=== PATIENT | female | born 1945 | race Caucasian/White ===

== ENCOUNTER 2016-11-01 07:30 | Inpatient (IN) | payer MEDICARE ==
--- NOTE | 2016-10-24 22:42 | HP ---
PREOPERATIVE HISTORY AND PHYSICAL: DATE OF OFFICE VISIT: 10/23/16 DATE OF SURGERY: 11/01/16 ATTENDING SURGEON: Chaparrita Lara MD PROCEDURE: Left total shoulder reverse. CHIEF COMPLAINT: Left shoulder pain. HISTORY OF PRESENT ILLNESS: Stacy is a 71-year-old female who presents to the clinic for ongoing left shoulder pain for several years due to severe osteoarthritis and rotator cuff arthropathy. She has failed conservative measures and therefore agreed to undergo a left total shoulder reverse by Dr. Lara on 11/01/16. PAST MEDICAL HISTORY: Hypertension, GERD, and rheumatoid arthritis. PAST SURGICAL HISTORY: Bilateral total knee replacements, radial head resection , C- section, and Doreen-en-Y gastric bypass. She denies complications with anesthesia. MEDICATIONS: 1. Simponi. 2. Lotrel. 3. Omeprazole. ALLERGIES: MORPHINE. FAMILY HISTORY: Cancer, diabetes, and heart disease. SOCIAL HISTORY: She lives with her spouse. She is a former smoker. She quit 42 years ago. She reports occasional alcohol consumption. She denies illegal drug use. REVIEW OF SYSTEMS: General: Negative for fever, chills, or night sweats. No known anesthesia problems. Negative for headache, lightheadedness, or syncopal episodes. Integumentary: Negative for abrasions, lesions, or open wounds. Cardiothoracic: Negative for chest pain, palpitations, or edema. Positive for hypertension. Pulmonary: Negative for shortness of breath with exertion, chronic cough, or COPD. GI: Positive for intermittent GERD. Denies nausea, vomiting, diarrhea, or constipation. : Negative for nocturia, urinary frequency, urinary urgency, history of UTIs, or kidney problems. Musculoskeletal: Positive for left shoulder pain. Neuro: Negative for numbness, tingling, history of seizure, stroke, or epilepsy. Endocrine: Negative for diabetes or thyroid disease. Heme: Negative for easy bruising, anemia, excessive bleeding, or history of DVT. Infectious Disease: Negative for history of MRSA. PHYSICAL EXAMINATION GENERAL: Well-developed, well-nourished, 71-year-old female, in no acute distress. VITAL SIGNS: Height 67, weight 192, blood pressure 134/75, respiratory rate 16 , temperature 97, and BMI 30.1. HEENT: Normocephalic, atraumatic. PERRLA. NECK: Supple. Throat clear. PULMONARY: Lungs are clear to auscultation bilaterally. No wheezing, rhonchi, or rales. CARDIO: Regular rate and rhythm. S1, S2. No murmurs, gallops, or rubs. No edema. ABDOMEN: Positive bowel sounds, soft, and nontender. MUSCULOSKELETAL: Left upper extremity, skin is intact with no warmth or erythema. Tenderness above the joint line. Forward flexion 140, abduction is 90 , external rotation is 50, and internal rotation to the lateral hip. Pain and weakness to rotator cuff testing; +2 radial pulse, +2 ulnar pulse. Sensation is intact to light touch distally. NEUROLOGIC: Alert and oriented x3. Cranial nerves grossly intact. Sensation intact to light touch. DIAGNOSTIC STUDIES/LAB DATA: Multiview x-rays of the left shoulder obtained in March reveal advanced glenohumeral arthritis. IMPRESSION: Left shoulder severe osteoarthritis and rotator cuff arthropathy. PLAN/RECOMMENDATIONS: The patient is scheduled to undergo a left total shoulder reverse with Dr. Lara on 11/01/16. She is holding her Simponi preoperatively and postoperatively per rheumatology. She has been cleared by rheumatology and will see her primary care physician soon for preoperative clearance. She will follow up in 10 to 14 days postoperative for followup, suture removal, and x-rays. A prescription for Percocet was e-prescribed to her pharmacy for postop pain management and Keflex was sent for antibiotic prophylaxis. DAPHNEY HEATH [id number]/[facility] #: [id number] NUBIA
[~2016-11-01 07:30] MED LIST: Dexamethasone IV* 4 MG/ML 1 ML (4 MG) IV SLOW PU ONE; Famotidine IV* 10 MG/ML 2 ML (20 mg) IV ONE
[2016-11-08] MEDS ORDERED: Famotidine IV* 10 MG/ML 2 ML (20 mg) IV ONE (06:00)
[2016-11-08] MEDS ORDERED: Gabapentin CAP(*) 300 MG PO ONE (06:00)
[2016-11-08] MEDS ORDERED: Buffered Lidocaine 0.9% SYRIN* 5 ML/SYR SYRINGE ONE (06:06)
[2016-11-08] MEDS ORDERED: Gabapentin CAP(*) 300 MG ONE (06:06)
[2016-11-08] MEDS ORDERED: ceFAZolin 2 GM PREMIX(*) 2 GM/50 ML BAG IVPB ONE (06:06)
[2016-11-08] MEDS ORDERED: Famotidine IV* 10 MG/ML 2 ML (20 mg) ONE (06:06)
[2016-11-08] MEDS ORDERED: Scopolamine 1.5 mg* PATCH ONE (07:21)
[2016-11-08] MEDS ORDERED: Midazolam* 1 MG/ML 5 ML VIAL (5 MG) ONE (07:25)
[2016-11-08] MEDS ORDERED: Lidocaine 1% MPF* 2 ML VIAL ONE (07:34)
[2016-11-08] MEDS ORDERED: fentaNYL* 50 MCG/ML 2 ML VIAL (100 MCG VIAL) ONE (07:44)
[2016-11-08] MEDS ORDERED: KETAMINE HCL* 50 MG/ML 10 ML VIAL ONE (08:09)
[2016-11-08] MEDS ORDERED: Midazolam* 1 MG/ML 2 ML VIAL (2 MG) ONE (08:20)
[2016-11-08] MEDS ORDERED: Propofol* 10 MG/ML 20 ML BTL IV PUSH ONE (08:25)
[2016-11-08] MEDS ORDERED: Succinylcholine* 20 MG/ML 10 ML VIAL ONE (08:25)
[2016-11-08] MEDS ORDERED: Ketorolac INJ* 30 MG/ML 1 ML VIAL ONE (08:25)
[2016-11-08] MEDS ORDERED: DiMENhydriNATE IV* 50 MG/ML VIAL ONE (08:25)
[2016-11-08] MEDS ORDERED: Dexamethasone IV* 4 MG/ML 1 ML (4 MG) ONE (08:25)
[2016-11-08] MEDS ORDERED: Ondansetron INJ* 2 MG/ML VIAL ONE (08:25)
[2016-11-08] MEDS ORDERED: fentaNYL* 50 MCG/ML 2 ML VIAL (100 MCG VIAL) IV PRN (08:30)
[2016-11-08] MEDS ORDERED: Acetaminophen TAB* 325 MG PO PRN (08:30)
[2016-11-08] MEDS ORDERED: DiMENhydriNATE IV* 50 MG/ML VIAL IV PUSH PRN (08:30)
[2016-11-08] MEDS ORDERED: Gabapentin CAP(*) 100 MG PO ONE ×2 (08:32)
[2016-11-08] MEDS ORDERED: ROPIVACAINE 5 MG/ML 30 ML BTL (0.5%) ONE (09:40)
[2016-11-08] MEDS ORDERED: Ondansetron INJ* 2 MG/ML VIAL IV PRN (10:40)
[2016-11-08] MEDS ORDERED: diPHENhydraMINE IV* 50 MG/ML 1 ml VIAL (BENADRYL) IV PRN (10:40)
[2016-11-08] MEDS ORDERED: oxyCODONE/Acetamin 5/325 MG* TAB PO PRN (10:40)
[2016-11-08] MEDS ORDERED: Temazepam CAP* 15 MG PO PRN (10:40)
[2016-11-08] MEDS ORDERED: Enoxaparin(*) 30 MG/0.3 ML SYR SUBCUT SCH (11:00)
--- NOTE | 2016-11-08 12:25 | RAD ---
HISTORY: Postop arthroplasty COMPARISONS: March 07, 2016 VIEWS: 4, frontal and crosstable lateral views of the left shoulder FINDINGS: BONE DENSITY: Normal. BONES: The patient is status post left shoulder arthroplasty. There is no hardware failure or osteolysis. JOINTS: The patient is status post left shoulder arthroplasty ALIGNMENT: There is no dislocation. SOFT TISSUES: There is post surgical change to the soft tissues OTHER FINDINGS: None. IMPRESSION: STATUS POST LEFT SHOULDER ARTHROPLASTY
[2016-11-08] MEDS: ceFAZolin VIAL(*) 1 GM in NS 0.9% 50 ML* 50 ML IVPB SCH ×2 (15:28→23:19)
[2016-11-08] MEDS: oxyCODONE TAB* 5 MG TAB PO PRN ×2 (16:54→21:10)
[2016-11-08] MEDS ORDERED: Gabapentin CAP(*) 300 MG PO SCH (21:00)
[2016-11-08] MEDS: Docusate CAP* 100 MG PO SCH (21:10)
[2016-11-09] MEDS: oxyCODONE/Acetamin 5/325 MG* TAB PO PRN ×4 (01:26→14:27)
[2016-11-09 07:17] LABS: Hematocrit 34 % (35-47); Hemoglobin 11.3 g/dl (12.0-16.0)
--- NOTE | 2016-11-09 07:26 | PN ---
Progress Note - Progress Note Note: POD#1 from L reverse. Doing well. block wore off. c/o soreness. no numbness/ tingling. taking pain meds q3hrs. Temp Pulse Resp BP Pulse Ox 97.9 F 74 18 106/57 97 11/09/16 03:33 11/09/16 03:33 11/09/16 04:25 11/09/16 03:33 11/09/16 03:33 NAD. LUE. dressing in place. able to flex/ext elbow. SILT 1st dws, index and long finger, and ulnar aspect of small finger. 2+ radial pulse. minimal hand swelling Laboratory Results - last 24 hr 11/08/11/09/16 06:38 06:17 Hgb 11.3 L Hct 34 L Antibody Screen Negative Intake and Output Last 24 Hours 11/07/16 11/08/16 11/09/16 11/10/16 06:59 06:59 06:59 06:59 Intake Total 5095 Output Total 500 Balance 4595 Weight 196 lb Intake: IV Fluids 2550 LR 2550 IVPB 55 Oral 1990 Moise Irrigate Amount 500 Output: Urine 500 Other: # Bowel Movements 0 A/P s/p L reverse POD#1 doing well. continue analgesia PT/OT- NWB. passive ROM only FF 90, abd 90, ER 40 No PE combined with IR cont iv abx drain output to be recorded and likely d/c'd later today. will potentially d/c today or tomorrow
[2016-11-09 07:36] LABS: BUN/Creatinine Ratio 19.4 (8-20); Calcium 8.3 mg/dL (8.6-10.3); EGFR African American 122.7 (>60); EGFR Non-African American 95.4 (>60); Potassium 3.9 mmol/L (3.5-5.0)
[2016-11-09] MEDS: Docusate CAP* 100 MG PO SCH (08:20)
[2016-11-09] MEDS: ceFAZolin VIAL(*) 1 GM in NS 0.9% 50 ML* 50 ML IVPB SCH (08:26)
[2016-11-09] MEDS: Ketorolac INJ* 30 MG/ML 1 ML VIAL IV PUSH PRN ×2 (08:32→14:27)
[2016-11-09] MEDS ORDERED: Atorvastatin* 20 MG TAB PO SCH (09:00)
[2016-11-09] MEDS ORDERED: amLODIPine TAB* 5 MG PO SCH (09:00)
[2016-11-09] MEDS ORDERED: oxyCODONE TAB* 5 MG TAB PO PRN (10:34)
[2016-11-09] MEDS ORDERED: Enoxaparin(*) 30 MG/0.3 ML SYR SUBCUT SCH (11:00)
[2016-11-09] MEDS: oxyCODONE TAB* 5 MG TAB PO PRN (11:32)
--- NOTE | 2016-11-09 11:56 | OP ---
CC: Primary Care Physician, Camilo Escalona DO* DATE OF OPERATION: 11/08/16 - ROOM #349 DATE OF : 49 SURGEON: Dr. Chaparrita Lara MD ASSISTANTS: DAPHNEY Mcgrath and DAPHNEY Conte. Assistants were needed for the entirety of the case to help with positioning, retraction and were utilized throughout all portions of the case. ANESTHESIOLOGIST: Dr. Vinson. ANESTHESIA: General with an interscalene block. PRE-OP DIAGNOSIS: Left shoulder rotator cuff arthropathy. POST-OP DIAGNOSIS: Left shoulder rotator cuff arthropathy. OPERATIVE PROCEDURE: Left shoulder reverse arthroplasty with open biceps tenodesis. IMPLANTS USED: Aequalis reversed centered glenosphere with a 25 mm baseplate, a 25 x 25 mm threaded baseplate, a left shoulder reverse insert with 9 mm of thickness, Ascend Flex size 4B humeral stem in a center reversed tray. OUTPUT: Includes drain x1. COMPLICATIONS: None. ESTIMATED BLOOD LOSS: About 200 cc. INDICATIONS: Stacy Rausch is a 71-year-old female with a history of rheumatoid arthritis with severe left shoulder arthritis with rotator cuff arthropathy. She failed conservative management and she has had worsening of pain. After an extensive discussion of the risks and benefits of surgical versus nonoperative treatment, she has elected to proceed with left shoulder reverse arthroplasty. Risks include but are not limited to bleeding, infection, damage to nerves, vessels and surrounding structures, the wound not healing, persistent pain, need for further surgery, risks of anesthesia, scarring, incomplete relief of symptoms, dislocation of fracture, and risks of DVT. She elects to proceed. After obtaining appropriate medical and cardiac clearance, she has been optimized for surgery. DESCRIPTION OF PROCEDURE: The patient was greeted in the preoperative area by the attending surgeon. Correct extremity was marked and consent was confirmed. The patient then underwent an interscalene nerve block which she tolerated without difficulty, after which the patient was brought back to the operating suite. She was placed in the supine position on the operating room table. She then underwent general anesthesia with endotracheal intubation, after which the patient was positioned in the lazy beach-chair position. All bony prominences were padded with a pillow placed under her knees as well as on her head. Her head was placed on a donut and secured carefully with Kerlix and Tamiko. The left shoulder was then prepped and draped in the usual sterile fashion beginning with chlorhexidine soap, scrub and alcohol wipe, and a final prep with ChloraPrep. After appropriate surgical pause indicating site, side, and procedure, and administration of antibiotic, the deltopectoral incision was made carefully with the 15 blade. The soft tissues were carefully dissected using the Metzenbaum scissors. Electrocautery device was used to maintain hemostasis. The cephalic vein was then identified and deltopectoral groove was identified. The vein was then taken laterally with the deltoid. A Hohmann retractor was placed above the coracoid for visualization. There was abundant bursa that was present anteriorly as well as the clavipectoral fascia, which was carefully incised and the short head of the biceps was identified as well as the coracoid. The nerve was then identified and then released. The clavipectoral and the subscapular bursa was identified and removed. The pec tendon was identified where it inserted. The proximal 1 cm was released and then the biceps was tenodesed at this point using a heavy nonabsorbable suture. This was then tenotomized proximal to that. The dissection was carried proximally following the trajectory of the biceps, which allowed access to the joint. The bursa and soft tissues and adhesions were then carefully released with the curved Da Silva scissors. At this point, the subscap was then carefully elevated in subscap ____type fashion. Stay sutures were used to control traction on the tendon. At this point, the head was visualized and there was a full-thickness, 2 to 3 cm retracted tear of the supraspinatus tendon. The infraspinatus remained intact. There was a large amount of osteophytes anteriorly and inferiorly, and a loose body that was present that was removed. That was at least 1 cm x 0.75 cm. The shoulder was then gently dislocated. All the capsule was removed inferiorly. The osteophyte was identified and then carefully removed using an osteotome and rongeur to allow identification of the humeral anatomical neck. Once the head was fully exposed, the subscap was tucked back into the subscap fossa, retractors were placed around the head to protect the soft tissue and the sagittal saw was then used to make a free-hand cut of the humeral head. At this point, the bone quality was found to be quite poor and the remainder of the humeral portion was done very carefully because of the poor quality of bone. The canal finder was first used and then the sounding device was then found to be between size 4 and 5. The starting broach was then placed with care to try to appropriately retrovert the arm in about 20 degrees of retroversion. These were then passed until a good fit was found, which was found to be a size 4. Once this was done, this was then coplaned and then a protection baseplate was placed on this. At this point, the shoulder was then carefully reduced back into the wound and placed posteriorly, and at this point, attention to the glenoid was done. The posterior retractor was placed behind the glenoid. The superior retractor was placed above the superior labrum. The subscap was identified and the superior, middle and inferior glenohumeral ligaments were then released carefully using a curved Da Silva as well as an electrocautery device. This then allowed for more mobilization of the subscap. There was a large anterior osteophyte about the glenoid. The ligament was then carefully removed from the 12 o'clock to the 5 o 'clock position using a regular Bovie. Once the soft tissues were identified and elevated, the biceps was sent for culture to check for P. acnes identification. The remainder of the inferior labrum was then carefully released using a needle-tip Bovie with careful retraction sutures to allow for release of the triceps as well as the inferior labrum. This was pealed back to expose the inferior portion of the glenoid. The glenoid was examined and there was found to be more wear posteriorly. She had a B1 to B2 type glenoid in between that without significant amounts of bone mass, but early bone loss. The threaded guide was then placed inferiorly in the glenoid using the guide with at least 11 mm from the inferior portion of the glenoid. The reamer was then brought in and more anterior bone was reamed than posterior bone. At this point, a decision was made to plan for bone graft to be placed posteriorly. The 8 mm drill was then used to drill the center peg and then a 6.5 mm drill bit was drilled and found to be a depth of about 25 mm. This was also measured using the depth gauge. Then the appropriate baseplate was chosen. This was tapped and then bone graft was placed more posteriorly along the defect after all hand reaming was finished. The bone graft was densely impacted into place. The final implant was brought to the field and then screwed into position with excellent purchase. At this point, 4 locking screws were then placed in appropriate length into the glenoid, beginning superiorly and inferiorly and then anteroposteriorly. The glenosphere was then brought into the field, packed in good position, and screwed with a sub screw. At this point, attention was directed back to the humerus. The shoulder was brought back through the wound. The threaded protection plate was removed and the stem was checked to see if it has moved. It had loosened somewhat; therefore, it was impacted back gently into position and required to be coplaned again. This was found to have a good fit. Again, the bone quality was quite poor, so impaction was done gently. At this point, the centered trial components were then placed. A standard poly was used and was found to be slightly too loose with good pinch in the deltoid, was easily dislocated. Therefore, a decision was made to trial with a 9 mm poly. This allowed for an excellent fit with appropriate shuck, forward flexion to about 140, abduction to 100 degrees, external rotation to about 70 degrees. This was then dislocated and found to somewhat difficult to dislocate; therefore, it was a better fit than the original poly and it was chosen. The final implants were then chosen and prepared on the back table by the attending surgeon. The trial implants were removed, 3 drill hole guides were then made with #5 Ethibond sutures for the subscap closure. The final implant was then impacted into the humerus with excellent purchase. The shoulder was then carefully reduced and taken through a range of motion, which was found to be the same. At this point, the wound was copiously irrigated with sterile saline. The #5 Ethibond sutures were then passed through the subscap inferior to superior to allow for good subscap closure. At this point, the wound was copiously irrigated again. A drain was then placed in the wound. After the wound was again irrigated, the deltopectoral groove was closed with #2 Ti-Cron sutures in case there is a need for any revision surgery. The deltopectoral groove was identified. The wound was irrigated again. The subcutaneous tissues and the skin were closed 2 layers with 2-0 Vicryl and 3-0 Monocryl. Sterile dressings were applied as well as the Cryo/Cuff and UltraSling. She was awoken from anesthesia and transferred to the PACU in stable condition. POSTOPERATIVE PLAN: She will be admitted overnight in the hospital. She will be given 24 hours of postoperative antibiotics as well as pain medication. The drain will be kept until postop day 1, which will likely be discontinued. She will be in the sling for 6 weeks. She will be allowed to work on passive range of motion only, forward flexion to 90, abduction to 90, external rotation to about 50 degrees as tolerated. I will see the patient back 10 to 14 days after she is discharged. [id number]/[facility] #: [id number] NUBIA
[2016-11-09 12:01] VITALS: BP 111/46
--- NOTE | 2016-11-09 23:11 | DS ---
DISCHARGE SUMMARY: DATE OF ADMISSION: 11/08/16 DATE OF DISCHARGE: 11/09/16 CHIEF COMPLAINT: 1. Shoulder pain. 2. Hypertension. 3. Gastroesophageal reflux disease. 4. Rheumatoid arthritis. DISCHARGE DIAGNOSES: 1. Status post left total shoulder reverse. 2. Hypertension. 3. Gastroesophageal reflux disease. 4. Rheumatoid arthritis. PROCEDURE: Left total shoulder arthroplasty. CONSULTATIONS: 1. Physical Therapy. 2. Occupational Therapy. BRIEF HISTORY: Ms. Rausch is a very pleasant 71-year-old female with severe end- stage degenerative osteoarthritis of the left shoulder, who has failed conservative treatment and has elected to underg o a left total shoulder arthroplasty on 11/08/[address] Lara. HOSPITAL COURSE: Ms. Rausch was admitted to [facility] on 11/08/16, where she underwent a left total shoulder arthroplasty. Postoperatively, she recovered in the surgical short stay unit. Her pain was controlled with Percocet and oxycodone orally. She was restarted on her home medicati ons without difficulty. Her labs and vital signs remained stable. Her DVT prophylaxis was managed with Lovenox inhouse. She was ambulatory without difficulty and worked well with physical therapy. By postoperative day #1, she was orthopedically and medically stable for discharge to go home with home services. PHYSICAL EXAMINATION: General: Well appearing, in no acute distress, alert and oriented x3. Vital Signs: Temperature 97.9, pulse rate 51, respirations 14, oxygen 99% on room air, blood pressure 12 9/46. Extremities: Examination showed the surgical dressing was intact. The patient was able to f rolo and extend the elbow without difficulty. Full range of motion of digits on left hand, +2 radial pulse left side, minimal hand swelling. LABORATORY DATA: On the date of discharge shows hemoglobin and hematocrit of 11.3 and 34. DISCHARGE MEDICATIONS: 1. Atorvastatin 20 mg p.o. daily. 2. Colace 100 mg p.o. b.i.d. 3. Gabapentin 300 mg p.o. q.p.m. 4. Amlodipine/atorvastatin 5/20 mg p.o. q.a.m. 5. Oxycodone 5 mg 1 to 2 tablets every 3 hours p.r.n. alternating with Percocet. 6. Percocet 5/325 mg 1 to 2 tablets every 3 hours as needed p.r.n. alternating with oxycodone. 7. Vitamin D 1000 units supplementation daily. 8. Simponi 1 unit injection monthly per physician. CONDITION ON DISCHARGE: Stable. DISCHARGE INSTRUCTIONS: Ms. Rausch is a very pleasant 71-year-old female status post left shoulder a rthroplasty, postoperative day [address] Lara. She is orthopedically and medically stable for disc harge to go home with home services. Her labs and vital signs are stable. She will restart her home medications. She will alternate between Percocet and oxycodone for postoperative pain control so a s not to take too much Tylenol. The patient was educated on this. She will follow up with Dr. Osvaldo howard in approximately 10 days for incision check and suture removal. She is instructed to go to the ER should she develop chest pain or shortness of breath. Should she develop fever, increasing pain, o r redness, she is to call the office immediately. DAPHNEY BENNETT [id number]/[facility] #: [id number]
== END 2016-11-09 14:45 | disposition home or self-care (01) | DRG 483 ==
LOC: AA 11-08 06:04 → INTOOBSV 11-08 06:04 → OBSVTOIN 11-08 06:04 → SSU 11-08 14:20
PROVIDERS: ADMIT Orthopaedic Surgery; ATTEND Orthopaedic Surgery
PROC: 0LB Tendons, Excision (ICD-10-PCS; 2016-11-08)
PROC: 0RRK00Z Replacement of Left Shoulder Joint with Reverse Ball and Socket Synthetic Substitute, Open Approach (ICD-10-PCS; principal; 2016-11-08 07:30)
DX: M19.012 Primary osteoarthritis, left shoulder (principal); I10 Essential (primary) hypertension; K21.9 Gastro-esophageal reflux disease without esophagitis; M06.9 Rheumatoid arthritis, unspecified; M25.512 Pain in left shoulder; M25.712 Osteophyte, left shoulder; Z87.891 Personal history of nicotine dependence; Z88.5 Allergy status to narcotic agent; Z79.899 Other long term (current) drug therapy; Z96.653 Presence of artificial knee joint, bilateral; Z98.84 Bariatric surgery status; Z83.3 Family history of diabetes mellitus; Z82.49 Family history of ischemic heart disease and other diseases of the circulatory system; Z80.9 Family history of malignant neoplasm, unspecified
CPT/HCPCS: 36415; 80048; 85014; 85018; 86850; 86900; 86901; 87070; 87205; 87640; 87641; 88304; 88311; 94760; 96374; A9270-GY; C1713; C1776; G0378; G8978-GP-CI; G8979-GP-CI; G8980-GP-CI; G8987-GO-CI; G8988-GO-CH; J0330; J0690; J1100; J1240; J1650; J1885; J2250; J2405; J2704; J2795; J3010

== ENCOUNTER 2018-03-14 05:53 | Inpatient (IN) | payer MEDICARE ==
--- NOTE | 2018-03-12 12:33 | HP ---
HISTORY AND PHYSICAL: DATE OF ADMISSION: 03/14/18 She is coming in to [facility] 03/14/18 in the morning for a left total hip replacement. CHIEF COMPLAINT: Left hip region pain. HISTORY OF PRESENT ILLNESS: This 73-year-old woman who is retired and has rheumatoid arthritis, began to having left hip region pains last winter while in [place] and all of her activities were severely restricted. This spring when she came back, she saw Dr. Celestin, it was felt she might have a radiculopathy. She had an MRI scan of the lumbar spine, saw a neurologist in [place], then she saw Dr. Auguste and Dr. Barrientos in [place] and over the summer, she had a left hip injection, which relived her pain for 3 to 4 weeks. The only other thing that relieved her pain this summer was a tapering dose of steroids from Dr. Celestin that she got earlier in the summer. Her walking distances has been less than a block. She has been doing stairs one at a time with the railing. She can sleep now only with oxycodone and the left hip region pain persists at the anterolateral left hip going down the thigh and some into her leg. She recently had EMGs that did not show a left lumbar radiculopathy, but did have some findings of neuropathy. Because severe pain has persisted and the only thing that has helped so far was the injection of the hip. We have recommended a left total hip replacement and we reviewed the risks and complications of that with her and her questions were answered. PAST SURGICAL HISTORY: She has had rheumatoid arthritis for many years with involvements of her elbows. She has had a left total shoulder replacement. She has had bilateral total knee replacements. For the past surgery, she had been cleared from the cardiovascular point of view. Her EKG has abnormality has on it and she has had no recent chest pain or shortness of breath. PAST MEDICAL HISTORY: No past history of bronchitis or pneumonia. MEDICATIONS: Her daily meds include: 1. Gabapentin 300 mg each day. 2. Percocet 1 to 2 tablets each 24 hours currently. 3. [employer], which she is not using. 4. She is on a combination of blood pressure medication that she does not have the name of right now. ALLERGIES: She is allergic to MORPHINE. FAMILY HISTORY: Positive for cancer of breast, diabetes and coronary disease. SOCIAL HISTORY: She does not smoke. She has 5 alcoholic beverages per week. She is currently living in a camper with her . REVIEW OF SYSTEMS: The patient herself has not had any cancers. She does not have kidney or bladder problems. No urinary infection. No bleeding difficulties and not currently under treatment for rheumatoid arthritis. PHYSICAL EXAMINATION GENERAL: She is overweight, not markedly distressed with an antalgic gait on the left. Prominent to the left hip. VITAL SIGNS: Pulse 64, blood pressure 138/72. HEENT: Head: NC/AT. LUNGS: Clear bilaterally. HEART: Regular. S1, S2 normal. No murmurs or gallops. ABDOMEN: Soft, nontender. There is no organomegaly. MUSCULOSKELETAL: The patient lies supine with her left hip and knee flexed and she can hardly put her knee down straight because of left hip region pain. Straight leg raising on the left is not possible. The left ankle has active movements up, down, in and out. The left posterior tibial pulses 2+. No swelling of the left leg ankle and foot. On the right side, she does an easy leg raise. Her knee replacements have well healed surgical scars without redness, fluctuance, or drainage. NEUROLOGIC: The pain currently rated as a 9/10. The cranial nerves are grossly intact. LAB DATA: Hip radiographs show some degenerative changes with osteophyte inferior and medial. IMPRESSION: Severe arthritis of the left hip, it certainly could be rheumatoid arthritis. I have consulted with Dr. Hsieh and we have recommended a left total hip replacement. Her questions were answered. [id number]/[facility] #: [id number] [facility]
[~2018-03-14 05:53] MED LIST changes: +Buffered Lidocaine 0.9% SYRIN* 5 ML/SYR SYRINGE INTRADERM ONE; -Dexamethasone IV* 4 MG/ML 1 ML (4 MG) IV SLOW PU ONE; -Famotidine IV* 10 MG/ML 2 ML (20 mg) IV ONE
[2018-03-14] MEDS ORDERED: Famotidine IV* 10 MG/ML 2 ML (20 mg) IV ONE (06:00)
[2018-03-14] MEDS ORDERED: Famotidine IV* 10 MG/ML 2 ML (20 mg) ONE (06:01)
[2018-03-14] MEDS ORDERED: Buffered Lidocaine 0.9% SYRIN* 5 ML/SYR SYRINGE ONE (06:02)
[2018-03-14] MEDS ORDERED: ceFAZolin 2 GM PREMIX in ORs 2 GM/50 ML BAG IVPB ONE (06:02)
[2018-03-14] MEDS ORDERED: Propofol* 10 MG/ML 20 ML BTL IV PUSH ONE (06:41)
[2018-03-14] MEDS ORDERED: Lidocaine 2% PF * 5 ML VIAL ONE ×2 (06:41→06:43)
[2018-03-14] MEDS ORDERED: fentaNYL* 50 MCG/ML 2 ML VIAL (100 MCG VIAL) ONE ×4 (06:43→10:54)
[2018-03-14] MEDS ORDERED: ROPIVACAINE 5 MG/ML 30 ML BTL (0.5%) ONE (06:43)
[2018-03-14] MEDS ORDERED: Midazolam* 1 MG/ML 2 ML VIAL (2 MG) ONE (06:43)
[2018-03-14] MEDS ORDERED: Rocuronium* 10 MG/ML VIAL ONE ×2 (07:52→08:32)
[2018-03-14] MEDS ORDERED: Ketorolac INJ* 30 MG/ML 1 ML VIAL ONE (08:36)
[2018-03-14] MEDS ORDERED: Metoclopramide IV* 5 MG/ML 2 ML VIAL ONE (08:36)
[2018-03-14] MEDS ORDERED: Ondansetron INJ* 2 MG/ML VIAL ONE (08:36)
[2018-03-14] MEDS ORDERED: Dexamethasone IV* 4 MG/ML 1 ML (4 MG) ONE (08:36)
[2018-03-14] MEDS ORDERED: Naloxone* 0.4 MG/ML 1 ML VIAL IV PRN (09:20)
[2018-03-14] MEDS ORDERED: DiMENhydriNATE IV* 50 MG/ML VIAL IV PUSH PRN (09:20)
[2018-03-14] MEDS ORDERED: Acetaminophen IV 1GM/100ML * 100 ML ONE (09:21)
[2018-03-14] MEDS ORDERED: Bupivacaine 0.25% W/EPI* 10 ML SDV ONE ×2 (09:45→09:49)
[2018-03-14] MEDS ORDERED: Sugammadex * 200 MG/2 ML VIAL IV PUSH ONE (09:45)
[2018-03-14] MEDS: fentaNYL* 50 MCG/ML 2 ML VIAL (100 MCG VIAL) IV PRN ×4 (10:36→12:10)
[2018-03-14] MEDS ORDERED: Magnesium Hydroxide LIQ* 30 ML UDC PO PRN (10:58)
[2018-03-14] MEDS ORDERED: diPHENhydraMINE PO* 25 MG PO PRN (10:58)
[2018-03-14] MEDS ORDERED: traMADol TAB* 50 MG PO PRN (10:58)
[2018-03-14] MEDS ORDERED: Ondansetron TAB* 4 MG PO PRN (10:58)
[2018-03-14] MEDS ORDERED: Ondansetron INJ* 2 MG/ML VIAL IV PRN (10:58)
[2018-03-14] MEDS ORDERED: Cyclobenzaprine TAB* 10 MG PO PRN (10:58)
[2018-03-14] MEDS ORDERED: traZODone TAB* 50 MG TAB PO PRN (10:58)
[2018-03-14] MEDS ORDERED: oxyCODONE TAB* 5 MG TAB ONE (12:46)
--- NOTE | 2018-03-14 12:46 | RAD ---
HISTORY: LEFT TOTAL HIP REPLACEMENT COMPARISONS: February 12, 2018 VIEWS: 4 , Frontal and lateral views of the left hip FINDINGS: BONE DENSITY: Normal. BONES: The patient is status post left hip arthroplasty. There is no hardware failure or osteolysis. JOINTS: The patient is status post left hip arthroplasty. ALIGNMENT: There is no dislocation. SOFT TISSUES: Unremarkable. OTHER FINDINGS: None. IMPRESSION: STATUS POST LEFT HIP ARTHROPLASTY
[2018-03-14] MEDS: ceFAZolin 1 GM in Dextrose (*) 1 GM/50 ML BAG IVPB SCH (15:30)
[2018-03-14] MEDS: Acetaminophen TAB* 325 MG PO SCH (17:50)
[2018-03-14] MEDS: Gabapentin CAP(*) 300 MG PO SCH (17:50)
[2018-03-14] MEDS: oxyCODONE TAB* 5 MG TAB PO PRN ×2 (18:29→23:03)
[2018-03-14] MEDS: Docusate CAP* 100 MG PO SCH (22:43)
[2018-03-14] MEDS: Ferrous Sulfate TAB* 325 MG PO SCH (22:43)
[2018-03-14] MEDS: Magnesium Hydroxide LIQ* 30 ML UDC PO SCH (22:43)
[2018-03-15] MEDS: ceFAZolin 1 GM in Dextrose (*) 1 GM/50 ML BAG IVPB SCH ×2 (00:06→07:57)
[2018-03-15] MEDS: Acetaminophen TAB* 325 MG PO SCH ×3 (00:13→18:13)
[2018-03-15] MEDS: oxyCODONE TAB* 5 MG TAB PO PRN ×6 (03:38→23:31)
--- NOTE | 2018-03-15 05:22 | OP ---
CC: Dr. Escalona * DATE OF OPERATION: 03/14/18 - ROOM #346 DATE OF : [birth year] - AGE: 73 SURGICAL CARE: Left hip. SURGEON: Kalen Auguste MD RATING EXAMINER: Justino. ANESTHESIOLOGIST: Dr. Hernandez. ANESTHESIA: A left hip iliofascial block and endotracheal tube general. PRE-OP DIAGNOSIS: Left hip arthritis, rheumatoid type. POST-OP DIAGNOSIS: Left hip arthritis, rheumatoid type. OPERATIVE PROCEDURE: Left total hip replacement. COMPONENTS UTILIZED: The Blaine Continuum cup 48 mm outer diameter 1 screw and elevated liner for 32, had located posteriorly and on the femoral side a M/L taper reduced neck standard size 9 with a +0 32 mm head neck. COMPLICATIONS: There were no complications. DRAINS: There were no drains BLOOD LOSS: 250 mL. REPLACEMENT: Crystalloid fluids. INDICATION: Persistent pain, left hip. DESCRIPTION OF PROCEDURE: The patient was brought to the operating room and placed on the operating room table in a supine position following the administration of the anesthetic. A Moise catheter was inserted. The patient was placed in the right lateral position with a folded blanket underneath the right greater trochanter. The pelvis was secured over the ASIS and the sacrum using the hip positioners, the groin was sealed off, the down side leg checked to see that there was no pressure on the peroneal nerve at the fibular head and neck and the left hip was given a preliminary chlorhexidine prep and then the final ChloraPrep. After prepping, draping and sealing off we did our universal protocol timeout confirming Stacy Young and a plan for left hip arthroplasty. We all agreed and we proceeded. Left hip was approached with the curving posterior lateral skin incision going from the greater trochanter distally for 2 to 3 inches and curving proximally and posteriorly for approximately 3 inches. Hemostasis was checked and achieved throughout the case utilizing electrocautery. The skin and subcu divided down to the iliotibial fascia. The fascia was opened up over the greater trochanter. A Charnley retractor was inserted. The trochanter was cleaned posteriorly. A blunt Hohmann retractor was inserted under the gluteus medius muscle. The piriformis was identified. The piriformis and conjoint tendon were released from their piriformis fossa insertions, the hip had clear synovial fluid, it did not seem to be too abundant. A careful posterior approach to the hip was done staying subperiosteal and careful hemostasis checked and achieved. The hip was dislocated without difficulty. The femoral neck was marked with the neck cutting guide and the femoral neck was cut approximately a fingerbreadth proximal to the lesser trochanter. The head and neck was removed. There was some thickening and synovitis in the capsule. The retractors Hohmann's anteriorly and posteriorly both sharp and superiorly and inferiorly blunt Hohmann's. The acetabulum had osteophytes. Posterior osteophyte was removed with an osteotome and the medial osteophyte removed with an osteotome. Charnley curette was utilized and the acetabulum was cleaned. Reaming was done 44 through 48. At 48, there was nice bleeding subchondral and cancellous bone. The acetabulum was cleaned with pulse saline, a 48 Continuum cup was impacted into position in 45 degrees of the abduction and 20 degrees of anteversion, a single screw was inserted and elevated liner was placed posteriorly. On the femoral side we used a canal finder, trochanteric reamer broaching was done 4 through 9, and 9 with a standard neck. The reduction was too tight, so a reduced neck M/L taper standard size 9 was impacted into position at approximately 15 to 20 degrees of anteversion. Trial reduction was done with a +0 and this had a very slight push-pull and no tendency towards dislocation and extension with rotations and in flexion of 90 degrees, adduction and internal rotation of 30 to 40 degrees were allowed prior to dislocation. The trunnion was cleaned and a +0 32 mm head was applied. The hip was reduced without difficulty. Closure was done with careful hemostasis several irrigations with lap sponges, swabbing the soft tissues to remove any debris. The piriformis and conjoint tendon were repaired onto the posterior superior greater trochanter through 2 drill holes and the stitches that have been used to robert them in the posterior capsule. The fascia angus closed with interrupted #1 Polysorb in [id number] fashion, the same in the fascia of the gluteus carmen. Deep and superficial subcu closed with 0 and then 2-0 Polysorb and then padmaja on the skin. The surgery was infiltrated with 20 mL of 0.25% Marcaine with epinephrine, some deep to the fascia and some in the skin and subcu. Dressing was applied after washing and drying with Betadine soaked release, sterile gauze, ABD pads and then paper tapes. The patient was returned to the hospital bed into the recovery room in stable and satisfactory condition, having tolerated the procedure very well. In the recovery room x- rays showed that the hip was in satisfactory overall alignment. [id number]/[facility] #: [id number] MTDD
[2018-03-15 06:05] LABS: Hematocrit 28 % (35-47); Hemoglobin 9.8 g/dl (12.0-16.0)
[2018-03-15 06:18] LABS: EGFR Non-African American 89.9 (>60)
[2018-03-15] MEDS ORDERED: oxyCODONE/Acetamin 5/325 MG* TAB PO PRN (06:18)
[2018-03-15] MEDS ORDERED: AMLODIPINE BESYLATE PO SCH (09:00)
[2018-03-15] MEDS ORDERED: BENAZEPRIL PO SCH (09:00)
[2018-03-15] MEDS: Aspirin TAB* 325 MG PO SCH (09:18)
[2018-03-15] MEDS: Vitamin B Complex TAB PO SCH (09:18)
[2018-03-15] MEDS: Ferrous Sulfate TAB* 325 MG PO SCH ×2 (09:18→23:31)
[2018-03-15] MEDS: Vitamin THERAPEUTIC TAB PO SCH (09:18)
[2018-03-15] MEDS: Cholecalciferol TAB* 1000 UNITS PO SCH (09:19)
[2018-03-15] MEDS: Docusate CAP* 100 MG PO SCH ×2 (09:19→23:31)
[2018-03-15] MEDS: Vitamin E CAP* 400 UNIT PO SCH (09:19)
[2018-03-15] MEDS: Magnesium Hydroxide LIQ* 30 ML UDC PO SCH ×2 (09:20→23:32)
[2018-03-15] MEDS: amLODIPine TAB* 5 MG PO SCH (10:33)
[2018-03-15] MEDS: Lisinopril TAB* 10 MG PO SCH (10:33)
--- NOTE | 2018-03-15 13:04 | PN ---
Progress Note - Progress Note Date of Service: 03/15/18 SOAP: Subjective: Pt is doing well. Pain is controlled. Doing well with PT. Denies CP/SOB, F/C. Objective: PE- 73y/o WDWN F NAD A&O x 3 LLE- dressing c/d/i, able to f/e knee and ankle, calf soft NT, +2 Dp pulse, SILT distally Vital Signs Temp Pulse Resp BP Pulse Ox 98.4 F 74 16 114/45 98 03/15/18 07:47 03/15/18 07:47 03/15/18 12:00 03/15/18 07:47 03/15/18 08:40 Laboratory Results - last 24 hr 03/15/18 03/15/18 05:36 05:36 Hgb 9.8 L Hct 28 L Sodium 137 Potassium 4.0 Chloride 106 Carbon Dioxide 29 Anion Gap 2 BUN 11 Creatinine 0.65 Est GFR ( Amer) 108.7 Est GFR (Non-Af Amer) 89.9 BUN/Creatinine Ratio 16.9 Glucose 123 H Calcium 8.0 L Assessment: POD 1 S/P left total hip arthroplasty by Dr. Auguste Plan: WBAT- cont PT/OT Cont oxycodone for pain control Cont Aspirin for DVT prophylaxis Dressing change tomorrow Possible DC to home with VNS tomorrow
[2018-03-15] MEDS: Gabapentin CAP(*) 300 MG PO SCH (18:13)
[2018-03-16] MEDS: Acetaminophen TAB* 325 MG PO SCH ×2 (01:26→09:37)
[2018-03-16] MEDS: oxyCODONE TAB* 5 MG TAB PO PRN ×3 (04:27→11:36)
[2018-03-16 06:15] LABS: Hematocrit 26 % (35-47); Hemoglobin 8.9 g/dl (12.0-16.0)
--- NOTE | 2018-03-16 08:45 | PN ---
Progress Note - Progress Note Date of Service: 03/16/18 SOAP: Subjective: Pt is doing well. Pain is controlled. Denies F/C, CP/SOB, calf pain. Doing well with physical therapy Objective: PE 73 y/o WDWN F NAD A&O x 3 LLE- dressing changed, inc c/d/i, calf soft NT, +DF/PF ankle, +2 DP pulse, SILT distally Vital Signs Temp Pulse Resp BP Pulse Ox 98.3 F 74 16 134/53 98 03/16/18 07:29 03/16/18 07:29 03/16/18 07:46 03/16/18 07:29 03/16/18 07:46 Laboratory Results - last 24 hr 03/16/18 05:56 Hgb 8.9 L Hct 26 L Assessment: POD 2 S/P left [place]MENT[place] Plan: Doing well DC to home with VNS today padmaja to be removed by VNS daily dressing changes ASA 325 mg daily for DVT prophylaxis oxycodone and tylenol for pain F/U with Dr. Auguste 4-6 weeks post op
[2018-03-16] MEDS: Docusate CAP* 100 MG PO SCH (09:37)
[2018-03-16] MEDS: Vitamin THERAPEUTIC TAB PO SCH (09:37)
[2018-03-16] MEDS: Vitamin E CAP* 400 UNIT PO SCH (09:37)
[2018-03-16] MEDS: Ferrous Sulfate TAB* 325 MG PO SCH (09:37)
[2018-03-16] MEDS: Vitamin B Complex TAB PO SCH (09:37)
[2018-03-16] MEDS: Aspirin TAB* 325 MG PO SCH (09:38)
[2018-03-16] MEDS: Cholecalciferol TAB* 1000 UNITS PO SCH (09:38)
[2018-03-16] MEDS: amLODIPine TAB* 5 MG PO SCH (09:39)
[2018-03-16] MEDS: Lisinopril TAB* 10 MG PO SCH (09:39)
[2018-03-16] MEDS: Magnesium Hydroxide LIQ* 30 ML UDC PO SCH (09:39)
[2018-03-16 11:21] VITALS: BP 110/62
--- NOTE | 2018-03-17 00:25 | DS ---
DISCHARGE SUMMARY: DATE OF ADMISSION: 03/14/18 DATE OF DISCHARGE: 03/16/18 PROVIDER: Dr. Kalen Auguste.* (DICTATED BY DAPHNEY HEATH) ADMITTING DIAGNOSIS: Status post left total hip arthroplasty for severe left hip arthritis. SECONDARY DIAGNOSIS: Rheumatoid arthritis. CONSULTATIONS: Physical Therapy/Occupational Therapy. HISTORY OF PRESENT ILLNESS: Stacy is a 73-year-old retired female with rheumatoid arthritis, who presented to the clinic with continued left hip pain due to severe arthritis. She failed conservative measures to include a hip injection and steroids and therefore, agreed to undergo a left total hip arthroplasty with Dr. Auguste on 03/14/18. HOSPITAL COURSE: The patient was admitted to [facility] [place] on 03/14/18. She underwent a left total hip arthroplasty. Postoperatively, she recovered in the short-stay surgical unit. Postop day #1, Moise was removed. She was able to urinate on her own. She was advanced to regular diet without difficultly and her pain was controlled with oral oxycodone. She was restarted on home medications. Labs and vitals remained stable. She was able to weight bear as tolerated on the left lower extremity. She advanced appropriately with physical therapy and occupational therapy. DVT prophylaxis was managed with aspirin. By postop day 2, she was orthopedically and medically stable for discharge to home with VNS Services. PHYSICAL EXAMINATION: General: No acute distress. Alert and oriented x3. Appropriate mood and affect. Vital Signs: Temperature 98.6, heart rate 94, respiratory rate 16, O2 sat 96% on room air, blood pressure 110/62. Left lower extremity: The surgical incision is clean, dry, and intact with no warmth, erythema, or physical signs of infection. Dry sterile dressing was applied. She has active ankle dorsiflexion, plantar flexion, +2 DP pulse. Sensation intact to light touch distally. Calf soft, nontender. DISCHARGE CONDITION: Stable. DISCHARGE MEDICATIONS: Home medications restarted on discharge to include: 1. Vitamin E 400 units by mouth in the morning. 2. Vitamin D 1000 units by mouth in the morning. 3. Gabapentin 300 mg by mouth in the evening. 4. Vitamin B12 one by mouth in the morning. 5. Lotrel 1 capsule by mouth in the morning. 6. oil 3 to 4 drops sublingual twice a day. New medications on discharge to include: 1. Aspirin 325 one by mouth daily. 2. Tylenol 975 mg every 8 hours as needed for pain. 3. Oxycodone 5 mg every 4 to 6 hours as needed for discomfort. DISCHARGE INSTRUCTIONS: The patient is weight bearing as tolerated on the left lower extremity. She should continue posterior hip precautions. Continue PT and OT exercises as shown. Okay to shower postop day 3. No bathing, swimming, or submerging the wound. Gentle soap and pat dry. Cover with antibiotic ointment, gauze, and tape. Call the orthopedic office with increased pain with redness, increased pain or fever greater than 101.5 and go to the ER with shortness of breath and chest pain. Regular diet with increased fluid and fiber to prevent constipation. Continue to use stool softeners. Call office if no bowel movements within 48 hours. VNS to remove padmaja in 10 to 14 days postop and do wound checks. Aspirin 325 mg daily x30 days to prevent blood clot. Pain control with oxycodone and [id number] Tylenol. Antibiotics required prior to any dental work in the future. Follow up with Dr. Auguste in 4 to 6 weeks postoperatively. Call the office with any questions or concerns. DAPHNEY HEATH [id number]/[facility] #: [id number] NUBIA
== END 2018-03-16 12:38 | disposition home health service (06) | DRG 470 ==
LOC: AA 05:53 → SSU 12:25
PROVIDERS: ADMIT Orthopaedic Surgery; ATTEND Orthopaedic Surgery
PROC: 0SRB02A Replacement of Left Hip Joint with Metal on Polyethylene Synthetic Substitute, Uncemented, Open Approach (ICD-10-PCS; principal; 2018-03-14 07:30)
DX: M06.852 Other specified rheumatoid arthritis, left hip (principal); G62.9 Polyneuropathy, unspecified; Z96.612 Presence of left artificial shoulder joint; M65.9 Synovitis and tenosynovitis, unspecified; Z96.653 Presence of artificial knee joint, bilateral; E66.3 Overweight; R26.89 Other abnormalities of gait and mobility; M25.752 Osteophyte, left hip; I10 Essential (primary) hypertension; I27.20 Pulmonary hypertension, unspecified; Z80.3 Family history of malignant neoplasm of breast; M41.9 Scoliosis, unspecified; Z88.5 Allergy status to narcotic agent; Z83.3 Family history of diabetes mellitus; Z82.49 Family history of ischemic heart disease and other diseases of the circulatory system; Z72.89 Other problems related to lifestyle; Z23 Encounter for immunization; Z79.82 Long term (current) use of aspirin; Z68.31 Body mass index [BMI] 31.0-31.9, adult; Z98.84 Bariatric surgery status
CPT/HCPCS: 36415; 80048; 85014; 85018; 85025; 85610; 85730; 86850; 86900; 86901; 88304; 88311; 90686; 93005; A9270-GY; C1713; C1776; G8978-GP-CI; G8978-GP-CJ; G8978-GP-CL; G8979-GP-CI; J0690; J1100; J1885; J2250; J2405; J2704; J2765; J2795; J3010

== ENCOUNTER 2021-02-16 10:15 | Observation (INO) ==
[2021-02-16] MEDS ORDERED: ceFAZolin 2 GM in NS PREMIX 2 GM/100 ML BAG IVPB ONE (12:06)
[2021-02-16] MEDS ORDERED: Midazolam 2 mg/2 ml VIAL 1 mg/ml 2 ml VIAL (2 mg) ONE (12:25)
[2021-02-16] MEDS ORDERED: fentaNYL 100 mcg/2 ml 50 MCG/ML VIAL ONE ×4 (12:25→18:06)
[2021-02-16] MEDS ORDERED: Phenylephrine IV 10 MG/ML 1 ml VIAL ONE (12:29)
[2021-02-16] MEDS ORDERED: Lidocaine 2% PF 5 ML VIAL ONE (12:29)
[2021-02-16] MEDS ORDERED: Ondansetron 4 mg VIAL 2 MG/ML 2 ml VIAL ONE (12:32)
[2021-02-16] MEDS ORDERED: Dexamethasone IV 4 MG/ML VIAL 1 ml VIAL ONE (12:32)
[2021-02-16] MEDS ORDERED: Metoclopramide 5 MG/ML VIAL (10 mg) IV PRN (12:40)
[2021-02-16] MEDS ORDERED: HYDROcodone/ACETAMIN 5/325 mg TAB PO PRN (12:40)
[2021-02-16] MEDS ORDERED: Ondansetron 4 mg VIAL 2 MG/ML 2 ml VIAL IV PRN ×2 (12:40→14:51)
[2021-02-16] MEDS ORDERED: Naloxone 0.4 mg VIAL 0.4 mg/ml 1 ml VIAL IV PRN (12:40)
[2021-02-16] MEDS ORDERED: diPHENhydraMINE IV 50 MG/ML 1 ml VIAL (BENADRYL) IV PRN ×2 (12:40→14:51)
[2021-02-16] MEDS ORDERED: HYDROmorphone 1 MG/1 ML SYRINGE IV SLOW PU ONE (12:44)
[2021-02-16] MEDS ORDERED: HYDROmorphone 0.5 MG/0.5 ML SYRINGE ONE (13:07)
[2021-02-16] MEDS ORDERED: Rocuronium 50 mg VIAL 10 mg/ml 5 ml VIAL (50 mg) ONE (14:32)
[2021-02-16] MEDS ORDERED: HYDROmorphone 1 MG/1 ML SYRINGE ONE ×2 (14:41→17:16)
[2021-02-16] MEDS ORDERED: Lactulose 30 ml UDC PO PRN (14:51)
[2021-02-16] MEDS ORDERED: Ondansetron ODT 4 mg TAB 4 MG TAB PO PRN (14:51)
[2021-02-16] MEDS ORDERED: Magnesium Hydroxide LIQ 30 ML UDC PO PRN (14:51)
[2021-02-16] MEDS ORDERED: Morphine 2 MG/ML SYRINGE IV PRN (14:51)
[2021-02-16] MEDS ORDERED: diPHENhydraMINE 25 mg TAB PO PRN (14:51)
[2021-02-16] MEDS ORDERED: fentaNYL 250 mcg/5 ml 50 MCG/ML 5 ml VIAL (250 MCG) ONE (15:06)
[2021-02-16] MEDS ORDERED: Propofol 10 MG/ML 20 ML BTL ONE (15:17)
[2021-02-16] MEDS ORDERED: Ketamine HCL 50 mg/ml 10 ml VIAL (500 MG) ONE (15:20)
[2021-02-16] MEDS ORDERED: Metoclopramide 5 MG/ML VIAL (10 mg) ONE (15:22)
[2021-02-16] MEDS: fentaNYL 100 mcg/2 ml 50 MCG/ML VIAL IV PRN ×5 (17:10→18:10)
[2021-02-16] MEDS: HYDROmorphone 1 MG/1 ML SYRINGE IV PRN ×2 (17:16→17:25)
[2021-02-16] MEDS: Lactated Ringers 1000 ml BAG 1,000 ML IV SCH (20:02)
[2021-02-16] MEDS: Magnesium Hydroxide LIQ 30 ML UDC PO SCH (21:02)
[2021-02-16] MEDS: ceFAZolin 1 GM ADVAN 1 GM in NS 0.9% 50 ML 50 ML IVPB SCH (23:18)
[2021-02-17] MEDS: Lactated Ringers 1000 ml BAG 1,000 ML IV SCH (05:31)
[2021-02-17] MEDS: ceFAZolin 1 GM ADVAN 1 GM in NS 0.9% 50 ML 50 ML IVPB SCH ×2 (06:30→07:07)
[2021-02-17] MEDS ORDERED: AMLODIPINE BENAZEPRIL PO SCH (09:00)
[2021-02-17] MEDS ORDERED: Vitamin THERAPEUTIC TAB PO SCH (09:00)
[2021-02-17] MEDS: Magnesium Hydroxide LIQ 30 ML UDC PO SCH (09:59)
[2021-02-17 10:43] LABS: Hematocrit 26 % (35-47); Hemoglobin 8.5 g/dL (12.0-16.0); Mean Platelet Volume 8.5 fL (7.4-10.4); Platelet Count 243 10^3/uL (150-450)
[2021-02-17 12:12] VITALS: BP 120/45
[2021-02-17 14:14] LABS: CO2 Carbon Dioxide 26 mmol/L (22-32); Calcium 8.1 mg/dL (8.6-10.3); Chloride 104 mmol/L (101-111); Sodium 138 mmol/L (135-145)
[2021-02-17 14:20] LABS: Blood Urea Nitrogen 14 mg/dL (6-24); EGFR African American 82.5 (>60); EGFR Non-African American 68.1 (>60); Glucose 134 mg/dL (70-100)
[2021-02-17 14:24] LABS: Anion Gap 8 mmol/L (2-11)
[2021-02-17] MEDS ORDERED: ceFAZolin 1 GM ADVAN 1 GM in NS 0.9% 50 ML 50 ML IVPB SCH (15:00)
== END 2021-02-17 16:00 | disposition home or self-care (01) ==
LOC: INTOOBSV 10:15 → AA 10:15 → SSU 18:45
PROVIDERS: ADMIT Orthopaedic Surgery Adult Reconstructive Orthopaedic Surgery; ATTEND Orthopaedic Surgery Adult Reconstructive Orthopaedic Surgery